=== PATIENT | female | born 2000 | race Hispanic/Latino ===

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

== ENCOUNTER 2021-01-10 12:47 | Emergency (ER) | payer BC, MEDICAID ==
[~2021-01-10] VITALS: Ht 160 cm; Wt 68.0 kg
[2021-01-10 12:49] VITALS: BP 156/54
[2021-01-10] MEDS ORDERED: MORPHINE 4 MG SYG ONE (14:06)
[2021-01-10] MEDS ORDERED: MORPHINE 4 MG SYG IM ONE (14:30)
== END 2021-01-10 15:51 | disposition home or self-care (01) ==
LOC: EDH 12:47
DX: S02.2XXA Fracture of nasal bones, initial encounter for closed fracture (principal); W22.8XXA Striking against or struck by other objects, initial encounter; Y93.89 Activity, other specified; Y92.89 Other specified places as the place of occurrence of the external cause; Y99.8 Other external cause status
CPT/HCPCS: 70150; 81025; 96372; 99284; J2270

== ENCOUNTER 2023-06-12 10:25 | Observation (INO) | payer MEDICAID, OTHER ==
[~2023-06-12] VITALS: Ht 165.1 cm; Wt 77.1 kg
[2023-06-12 10:29] VITALS: BP 129/70; PULSE 109; RESP 18
[2023-06-12 11:08] LABS: APPEARANCE,URINE CLOUDY (CLEAR); BILIRUBIN,URINE NEGATIVE (NEGATIVE); COLOR,URINE YELLOW (YELLOW); GLUCOSE, URINE (UA) NEGATIVE (NEGATIVE); KETONES,URINE NEGATIVE (NEGATIVE); LEUKOCYTE ESTERASE ,URINE 25 Leu/uL (NEGATIVE); NITRATE,URINE NEGATIVE (NEGATIVE); OCCULT BLOOD,URINE NEGATIVE (NEGATIVE); PROTEIN,URINE 30 mg/dL (NEGATIVE); UROBILINOGEN,URINE 0.2 mg/dL (0.2-1.0)
[2023-06-12 11:13] LABS: ADD UA MICROSCOPIC YES
[2023-06-12 11:18] LABS: BACTERIA,URINE FEW /HPF (None Seen); MUCUS,URINE FEW LPF (None Seen); SQUAMOUS EPITHELIAL CELL,UR MANY /HPF (0-2)
[2023-06-12] MEDS: PROMETHAZINE HCL 25 MG/ML 1ML AMPULE IM ONE (11:46)
[2023-06-12] MEDS: LACTATED RINGERS 1000ML 1,000 ML IV PRN (11:46)
[2023-06-12 11:48] LABS: BASOPHILS # (AUTO) 0.04 K/uL (0.00-0.20); BASOPHILS % (AUTO) 0.2 % (0.0-5.0); EOSINOPHILS # (AUTO) 0.08 K/uL (0.00-0.70); EOSINOPHILS % (AUTO) 0.4 % (0.0-8.0); IMMATURE GRANULOCYTE ABSOLUTE 0.16 K/uL (0-1); LYMPHOCYTES % (AUTO) 10.4 % (21.0-51.0); MEAN CORPUSCULAR HEMOGLOBIN 28.6 pg (27.0-33.0); MEAN CORPUSCULAR HGB CONC 34.4 g/dL (32.0-36.0); MEAN CORPUSCULAR VOLUME 83.3 fL (80-100); MONOCYTES % (AUTO) 5.1 % (3.0-13.0); NEUTROPHILS % (AUTO) 83.1 % (40.0-77.0); PLATELET COUNT (AUTO) 257 K/uL (130-400); RED BLOOD CELL COUNT(AUTO) 4.68 MIL/uL (4.00-5.50); RED CELL DISTRIBUTION WIDTH 12.6 % (11.0-15.5); WHITE BLOOD COUNT (AUTO) 19.2 K/uL (4.8-10.8)
[2023-06-12 11:58] LABS: AMPHET/METH SCREEN,URINE NEGATIVE (NEGATIVE); BARBITURATE SCREEN, URINE NEGATIVE (NEGATIVE); BENZODIAZEPINES SCREEN,URINE NEGATIVE (NEGATIVE); CANNABINOID SCREEN,URINE NEGATIVE (NEGATIVE); COCAINE SCREEN,URINE NEGATIVE (NEGATIVE); OPIATE SCREEN,URINE NEGATIVE (NEGATIVE); PHENCYCLIDINE SCREEN,URINE NEGATIVE (NEGATIVE)
[2023-06-12 12:02] LABS: CREATININE 0.5 mg/dL (0.5-1.5); POTASSIUM 4.1 mmol/L (3.5-5.1)
[2023-06-12 12:06] LABS: BILIRUBIN,TOTAL 0.9 mg/dL (0.2-1.0); TOTAL PROTEIN, SERUM 7.4 g/dL (6.0-8.3)
[2023-06-12] MEDS: ONDANSETRON 4MG INJ IVP ONE (12:42)
[2023-06-12] MEDS: CEFTRIAXONE 1G VIAL IVPB ONE (13:09)
[2023-06-12] MEDS: CITRIC ACID/SODIUM CITRATE 30 ML UDCUP PO ONE (13:09)
== END 2023-06-12 14:15 | disposition home or self-care (01) ==
LOC: EDH 10:25 → LDH 10:26
PROVIDERS: ADMIT Obstetrics & Gynecology; ATTEND Obstetrics & Gynecology
DX: O21.2 Late vomiting of pregnancy (principal); O26.893 Other specified pregnancy related conditions, third trimester; R10.9 Unspecified abdominal pain; Z3A.30 30 weeks gestation of pregnancy; Z79.899 Other long term (current) drug therapy
CPT/HCPCS: 96374; 96372; 96375; 82150; 80053; 80305; 83690; 85025; 87088; 81001; 36415; 76815; G0378 ×4; G0379; J2550; J0696; J2405; J7120; 96360; 96361

== ENCOUNTER 2023-08-03 16:00 | Inpatient (IN) | payer MEDICAID ==
[~2023-08-03] VITALS: Ht 157.5 cm; Wt 81.6 kg
[2023-08-04] VITALS: BP 118/60; PULSE 82; RESP 20
[2023-08-04] MEDS: LACTATED RINGERS 1000ML 1,000 ML IV SCH (06:15)
[2023-08-04 06:19] LABS: HEMATOCRIT 36.9 % (36-48); MEAN CORPUSCULAR HEMOGLOBIN 27.3 pg (27.0-33.0); MEAN CORPUSCULAR HGB CONC 34.1 g/dL (32.0-36.0); MEAN CORPUSCULAR VOLUME 79.9 fL (80-100); RED BLOOD CELL COUNT(AUTO) 4.62 MIL/uL (4.00-5.50); RED CELL DISTRIBUTION WIDTH 13.5 % (11.0-15.5); WHITE BLOOD COUNT (AUTO) 10.2 K/uL (4.8-10.8)
[2023-08-04 06:33] LABS: AMPHET/METH SCREEN,URINE NEGATIVE (NEGATIVE); BARBITURATE SCREEN, URINE NEGATIVE (NEGATIVE); BENZODIAZEPINES SCREEN,URINE NEGATIVE (NEGATIVE); CANNABINOID SCREEN,URINE NEGATIVE (NEGATIVE); COCAINE SCREEN,URINE NEGATIVE (NEGATIVE); OPIATE SCREEN,URINE NEGATIVE (NEGATIVE); PHENCYCLIDINE SCREEN,URINE NEGATIVE (NEGATIVE)
[2023-08-04 06:56] LABS: HIV 1&2 ANTIBODY Non-Reactive (Negative); HIV-1 p24 Antigen Non-Reactive (Negative)
[2023-08-04] MEDS: CEFAZOLIN SODIUM 1 GM VIAL IVPB PRN (07:24)
[2023-08-04] MEDS ORDERED: DEXAMETHASONE SOD PHOSPHATE 10MG/ML 1ML VIAL ONE (07:47)
[2023-08-04] MEDS ORDERED: OXYTOCIN 10 USP UNITS/ML ONE ×2 (07:47→07:50)
[2023-08-04] MEDS ORDERED: MORPHINE PF 100MG/10ML AMP IV ONE (07:47)
[2023-08-04] MEDS ORDERED: ONDANSETRON 4MG INJ ONE (07:47)
[2023-08-04] MEDS ORDERED: FENTANYL CITRATE PF 50 MCG/1 ML 2ML VIAL ONE (07:48)
[2023-08-04] MEDS ORDERED: OXYTOCIN 10 UNIT/1ML 10ML VIAL ONE (07:49)
[2023-08-04] MEDS: CEFAZOLIN SODIUM 2 GM VIAL IVPB ONE (07:52)
[2023-08-04] MEDS: CALDOLOR 800MG+NS 250ML 250 ML IV PRN (08:30)
[2023-08-04] MEDS ORDERED: 0.9%NACL 10ML VIAL IVP PRN (09:00)
[2023-08-04] MEDS ORDERED: OXYTOCIN-LR 30 UNITS/500ML 500 ML IV PRN (09:00)
[2023-08-04] MEDS: LORATADINE 10 MG TABLET PO PRN (09:22)
[2023-08-04] MEDS ORDERED: ONDANSETRON 4MG INJ IVP PRN (09:30)
[2023-08-04] MEDS: MEPERIDINE-PF 75 MG/ML SYG IM PRN (10:37)
[2023-08-04] MEDS: PROMETHAZINE HCL 25 MG/ML 1ML AMPULE IM PRN (10:38)
[2023-08-04 10:50] VITALS: BP 98/56; PULSE 67; RESP 18
[2023-08-04 15:30] VITALS: BP 116/56; PULSE 82; RESP 18
[2023-08-04] MEDS: CALDOLOR 800MG+NS 250ML 250 ML IV SCH (17:35)
[2023-08-04] MEDS ORDERED: DIPH,PERTUSS(ACELL),TET VAC/PF 0.5 ML VIAL IM ONE (19:30)
[2023-08-04 19:50] VITALS: BP 108/54; PULSE 74; RESP 18
[2023-08-04] MEDS: DEXTROSE 5 %-0.45 % NACL 1,000 ML IV PRN (19:51)
[2023-08-05] VITALS: BP 118/60; PULSE 82; RESP 20
[2023-08-05] MEDS ORDERED: ACETAMINOPHEN WITH CODEINE 1 TAB TAB PO PRN (03:30)
[2023-08-05] MEDS ORDERED: ACETAMINOPHEN 500 MG TABLET PO PRN ×2 (03:30)
[2023-08-05] MEDS ORDERED: BISACODYL 10 MG SUPP.RECT RC PRN (03:30)
[2023-08-05] MEDS ORDERED: LANOLIN 30GM OINTMENT TP PRN (03:30)
[2023-08-05 03:50] VITALS: BP 117/64; PULSE 80; RESP 20
[2023-08-05 08:00] VITALS: BP 104/65; PULSE 77; RESP 18
[2023-08-05 08:19] LABS: HEMATOCRIT 31.6 % (36-48); MEAN CORPUSCULAR HEMOGLOBIN 27.8 pg (27.0-33.0); MEAN CORPUSCULAR HGB CONC 33.2 g/dL (32.0-36.0); MEAN CORPUSCULAR VOLUME 83.6 fL (80-100); RED BLOOD CELL COUNT(AUTO) 3.78 MIL/uL (4.00-5.50); RED CELL DISTRIBUTION WIDTH 13.7 % (11.0-15.5); WHITE BLOOD COUNT (AUTO) 11.2 K/uL (4.8-10.8)
[2023-08-05] MEDS: DOCUSATE SODIUM 100 MG CAP PO SCH (08:42)
[2023-08-05] MEDS: SIMETHICONE 80 MG TAB.CHEW PO PRN (08:43)
[2023-08-05] MEDS: HYDROCODONE/ACETAMINOPHEN 5/325 MG TAB PO PRN (08:43)
[2023-08-05] MEDS: IBUPROFEN 800 MG TAB PO SCH (08:44)
[2023-08-05] MEDS ORDERED: DOCUSATE SODIUM 100 MG CAP PO SCH (09:00)
[2023-08-05 11:41] LABS: RAPID PLASMA REAGIN NONREACTIVE (NONREACTIVE)
[2023-08-05] MEDS: DIPH,PERTUSS(ACELL),TET VAC/PF 0.5 ML VIAL IM ONE (11:49)
[2023-08-05 12:00] VITALS: BP 117/66; PULSE 88; RESP 18
[2023-08-05] MEDS ORDERED: IBUP-2077 PO (13:17)
[2023-08-05] MEDS ORDERED: DOCU-116 PO (13:17)
[2023-08-05] MEDS ORDERED: ACET-2079 PO (13:18)
== END 2023-08-05 14:00 | disposition home or self-care (01) | DRG 540 ==
LOC: LDH 08-04 05:28 → WSH 08-04 10:50 → EDSTATUS 08-04 12:06
PROVIDERS: ADMIT Obstetrics & Gynecology; ATTEND Obstetrics & Gynecology
PROC: 10D00Z1 Extraction of Products of Conception, Low, Open Approach (ICD-10-PCS; principal; 2023-08-04 12:00)
PROC: 3E0234Z Introduction of Serum, Toxoid and Vaccine into Muscle, Percutaneous Approach (ICD-10-PCS; 2023-08-05)
DX: O82 Encounter for cesarean delivery without indication (principal); Z23 Encounter for immunization; Z37.0 Single live birth; Z3A.38 38 weeks gestation of pregnancy
CPT/HCPCS: 36415; 59510; 80305; 85027; 86592; 86701; 86850; 86900; 86901; 87340; 87390; 90715; A4344; G0378; J0690; J1100; J1741; J2175; J2274; J2405; J2550; J2590; J3010; J7120; A4248; C1765

== ENCOUNTER 2024-09-18 13:21 | Emergency (ER) | payer BC, MEDICAID ==
[~2024-09-18] VITALS: Ht 157.5 cm; Wt 68.0 kg
[~2024-09-18 13:21] MED LIST: ACET-2079 PO; DOCU-116 PO; IBUP-2077 PO
[2024-09-18 13:40] VITALS: BP 115/74; PULSE 70; RESP 16; TEMP 98; O2SAT 98
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
--- NOTE | 2024-09-18 14:03 | HMCIMG ---
Exam Type: FOOT LIMITED 2VWS RT Clinical Information: RT FOOT PAIN S/P INJURY Comparison: None Findings: The bone examination is unremarkable. No fractures or dislocations are seen. No radiopaque foreign bodies are noted. Soft tissues are preserved. IMPRESSION: Normal examination.
[2024-09-18] MEDS: acetaMINOPHEN 500 MG TABLET PO ONE (14:15)
== END 2024-09-18 14:21 | disposition home or self-care (01) ==
LOC: EDH 13:21
DX: S97.81XA Crushing injury of right foot, initial encounter (principal); Z79.899 Other long term (current) drug therapy; Z90.49 Acquired absence of other specified parts of digestive tract; Z98.890 Other specified postprocedural states; W23.0XXA Caught, crushed, jammed, or pinched between moving objects, initial encounter; Y93.89 Activity, other specified; Y92.89 Other specified places as the place of occurrence of the external cause; Y99.8 Other external cause status
CPT/HCPCS: 73620; 99283